=== PATIENT | female | born 1990 | race Caucasian/White ===

== ENCOUNTER 2025-02-03 15:08 | Emergency (ER) | payer BC, SELFPAY ==
--- NOTE | ~2025-02-03 | XR_ITS ---
EXAMINATION: XR chest 1V portable Exam Date/Time: 02/03/2025 15:40 CDT HISTORY: weakness Comparison: None. RESULT: Lines, tubes, and devices: None. Lungs and pleura: Clear. Cardiomediastinal silhouette: Unremarkable. Other: No acute osseous or upper abdominal finding. IMPRESSION: No acute cardiopulmonary process. Reviewed, dictated and finalized at location K.
--- NOTE | ~2025-02-03 | CT_ITS ---
EXAMINATION: CT brain wo con DATE: 02/03/2025 16:08 INDICATION: weakness . TECHNIQUE: Computed tomography (CT) of the head was performed without intravenous contrast. The mA wa s adjusted according to patient size. Iterative reconstruction technique was employed. The dose-lengt h product was 605.33 mGy-cm. COMPARISON: None. FINDINGS: No acute intracranial hemorrhage or extra-axial fluid collection. No hydrocephalus, mass, or herniation. No acute ischemic infarct. Unremarkable dural venous sinus attenuation. No acute osseous abnormality. The aerated spaces are clear. IMPRESSION: No acute intracranial process. Reviewed, dictated and finalized at location K.
[2025-02-03 15:10] VITALS: BP 158/99; PULSE 82; RESP 18; TEMP 36.7; O2SAT 96
--- NOTE | 2025-02-03 15:17 | ECG_ITS ---
Test Date: 2025-02-03 15:21:28 Measurements Intervals [place] Rate: 80 P: 59 [place]: 167 QRS: 106 QRSD: 111 T: 35 QT: 414 QTc: 480 Interpretive Statements SINUS RHYTHM RIGHT AXIS DEVIATION INCOMPLETE RIGHT BUNDLE BRANCH BLOCK BORDERLINE R WAVE PROGRESSION, ANTERIOR LEADS MINIMAL Q WAVES- INFEROR LEADS BORDERLINE ECG No previous ECG available for comparison Electronically Signed On 02-03-2025 15:30:49 CDT by John Velazquez D.O.
[2025-02-03 15:21] VITALS: PULSE 81
[2025-02-03 15:22] VITALS: BP 158/99; PULSE 81; RESP 20
[2025-02-03 15:33] LABS: Glucose Point of Care 121 mg/dl (65-105)
[2025-02-03 15:49] LABS: BEDSIDEPREGUCG Negative (Negative)
--- NOTE | 2025-02-03 15:51 | ED.NEUROSD ---
HPI - Neuro Symptoms/Deficit General Chief Complaint: Neuro Symptoms/Deficit Stated Complaint: neuro Time Seen by Provider: 02/03/25 15:15 History of Present Illness HPI Narrative: 34-year-old female with history of hypertension on labetalol. She presents to the emergency department with multiple complaints and unclear exactly what her chief complaint is. She states that she is here because all of her face and extremities, chest and abdomen are all swollen and have been swelling for last 3 days. She states she was at another hospital recently and left against medical advice after they were not treating her well. She states that she does meth and marijuana. Police reportedly called to the patient's house today and afterwards EMS transferred her to the hospital but unclear why the police were involved in the 1st place as this patient is a poor historian and they are not present for collateral formation at bedside. Report from EMS was that she had generalized weakness and swelling and were concerned for some neuro symptoms including slurring of her speech which was not present on my encounter with the patient. She states she has been feeling this way for 3 or more days and when asked about how long she meant by ?more days ? she said it possibly is up to 4 years that she has been feeling ill. States that she was having uncontrolled blood pressure issues for the duration of the last 4 years and her symptoms fluctuate with blood pressure. Patient does not endorse any symptoms such as headache, vision changes, chest pain, abdominal pain, back pain, weakness or paresthesias. Patient is more concerned about her whole body swelling which on clinical examination does not appear evident or significant. Related Data Allergies Allergy/AdvReac Type Severity Reaction Status Date / Time No Known Allergies Allergy Verified 02/03/25 15:23 Review of Systems Review of Systems: As reviewed above in HPI Exam Narrative: GENERAL: [Well-appearing, well-nourished, and in no acute distress.] HEAD: [Normocephalic, atraumatic.] EYES: [PERRLA and EOMI.] ENT: Nares clear, no rhinorrhea or epistaxis. Mucous membranes moist. NECK: Supple. CHEST: [Clear to auscultation. No respiratory distress.] HEART: [Regular rate and rhythm]. No murmur heard. [Normal peripheral pulses.] ABDOMEN: [Soft, nondistended], [nontender], [No rigidity or guarding] EXTREMITIES: Normal range of motion. No extremity edema in the arms legs, no periorbital ecchymosis or edema. SKIN: Warm, dry, no rash. NEURO: [No focal deficits]. Alert and oriented [x3.] Has no facial droop or any facial asymmetry, no slurring of her speech PSYCH: [Normal mood and affect.] Course Vital Signs Vital signs: Vital Signs Temperature 36.7 C 02/03/25 15:10 Pulse Rate 82 02/03/25 15:10 Respiratory Rate 18 02/03/25 15:10 Blood Pressure 158/99 H 02/03/25 15:10 Pulse Oximetry 96 02/03/25 15:10 Oxygen Delivery Room Air 02/03/25 15:10 Temperature 36.7 C 02/03/25 15:10 Pulse Rate 81 02/03/25 16:29 Respiratory Rate 18 02/03/25 16:29 Blood Pressure 156/86 H 02/03/25 16:29 Pulse Oximetry 98 02/03/25 16:29 Oxygen Delivery Room Air 02/03/25 15:10 MDM - Neuro Symptoms/Deficit MDM Narrative Medical decision making narrative: 34-year-old female with history of hypertension on labetalol. She presents to the emergency department with multiple complaints and unclear exactly what her chief complaint is. She states that she is here because all of her face and extremities, chest and abdomen are all swollen and have been swelling for last 3 days. She states she was at another hospital recently and left against medical advice after they were not treating her well. She states that she does meth and marijuana. Police reportedly called to the patient's house today and afterwards EMS transferred her to the hospital but unclear why the police were involved in the 1st place this patient is a poor historian and they are not present for collateral formation at bedside. Report from EMS was that she had generalized weakness and swelling and were concerned for some neuro symptoms including slurring of her speech which was not present on my encounter with the patient. She states she has been feeling this way for 3 or more days and when asked about how long she meant by ?more days ? she said it possibly is up to 4 years that she has been feeling ill. States that she was having uncontrolled blood pressure issues for the duration of the last 4 years and her symptoms fluctuate with blood pressure. Patient does not endorse any symptoms such as headache, vision changes, chest pain, abdominal pain, back pain, weakness or paresthesias. Patient is more concerned about her whole body swelling which on clinical examination does not appear evident or significant. Laboratory studies were ordered including TSH, electrolyte panel, CBC, EKG, chest x-ray and a CT of the head was ordered. Blood pressure was mildly elevated but not severe range and otherwise has normal vital signs with an unremarkable neurological assessment. Patient's workup was largely unremarkable without any signs of leukocytosis, anemia, platelet concerns. Normal coagulation panel. Chemistry panel was unremarkable with normal electrolytes. Creatinine 1.81 and patient states she has kidney disease from hypertension which we do not have a baseline to compare to but does track with her level today. Glucose is normal. LFTs are unremarkable. Normal TSH. test is negative, urinalysis negative. Urine drug screen is positive for cannabinoids otherwise negative. Negative alcohol level. Chest x-ray without any acute cardiopulmonary process. CT of the head without any acute intracranial process, no ischemic infarct, no hydrocephalus mass effect or herniation, normal dural venous sinus, normal air spaces. No hemorrhage or extra-axial fluid collections. EKG shows sinus rhythm, no ST segment elevations, depressions or acute inversions. Patient's symptomatology could very well be related to her chronic kidney disease which is likely secondary to her chronic hypertension. She remains hemodynamically stable here and asymptomatic with an acceptable blood pressure and an unremarkable workup. No urgent or emergent concerns are identified today and she can be safely discharged with close follow-up with her primary care provider. Medical Records Attestation: I reviewed the patient's medical records. Lab Data Attestation: I reviewed the patient's lab results. 02/03/25 16:38 02/03/25 16:38 Labs: Lab Results 02/03/25 02/03/25 02/03/25 Range/Units 15:30 15:42 15:43 WBC (4.5-10.0) K/mm3 RBC (4.2-5.4) M/mm3 Hgb (12.0-15.0) g/dL Hct (37.0-47.0) % MCV (80-100) fl MCH (26-34) pg MCHC (32-36) g/dl RDW (11.5-14.5) % Plt Count (150-375) k/mm3 MPV (7.4-10.4) fl Immature Gran % (Auto) (0-0.5) % Neut % (Auto) (45.5-73.1) % Lymph % (Auto) (18.3-44.2) % [place] % (Auto) (2.6-8.5) % Eos % (Auto) (0-4.4) % Baso % (Auto) (0.2-1.2) % Lymph # (Auto) (0.9-3.2) K/mm3 [place] # (Auto) (0.1-0.6) K/mm3 Eos # (Auto) (0-0.3) K/mm3 Baso # (Auto) (0.0-0.1) K/mm3 Abs Immat Gran (auto) (0.00-0.031) K/mm3 Absolute Neuts (auto) (1.3-6.7) K/mm3 Absolute Nucleated RBC (0.0-0.012) K/mm3 Nucleated RBC % (0.0-0.2) % PT (11.1-14.7) Seconds INR APTT (22.3-36.8) Seconds Sodium (137-145) mmol/L Potassium (3.4-5.0) mmol/L Chloride (98-107) mmol/L Carbon Dioxide (22-30) mmol/L Anion Gap (4-12) mmol/L BUN (7-17) mg/dL Creatinine (0.7-1.0) mg/dL Estim Creat Clear Calc ml/min Estimated GFR (59 - ) Glucose (65-110) mg/dL POC Capillary Glucose 121 H (65-105) mg/dl Calcium (8.4-10.2) mg/dL Total Bilirubin (0.2-1.3) mg/dL AST (14-36) U/L ALT (6-35) U/L Alkaline Phosphatase (38-126) U/L Total Protein (6.3-8.2) g/dL Albumin (3.5-5.1) g/dL TSH (Reflex) 2.650 (0.465-4.68) uIU/mL Urine Color Yellow (Yellow) Urine Appearance Clear (Clear) Urine pH 7.5 (5.0-9.0) Ur Specific [place] 1.018 (1.001-1.035) Urine Protein 4+ H (Negative) mg/dL Urine Glucose (UA) Negative (Negative) mg/dL Urine Ketones Negative (Negative) mg/dL Ur Blood (Man) Negative (Negative) Urine Nitrate Negative (Negative) Urine Bilirubin Negative (Negative) Urine Urobilinogen 1.0 (<2.0) mg/dL Leukocyte Esterase Rfl Negative (Negative) [place]/UL Urine RBC 0-2 (0-2) /hpf Urine WBC 0-5 (0-3) /hpf Ur Squamous Epith Cells Moderate (Few) /hpf Urine Bacteria Rare /hpf Urine Casts 0-2 POC Urine HCG, Qual (Negative) Urine Opiates Screen Negative (Negative) Urine Methadone Screen Negative (Negative) Ur Barbiturates Screen Negative (Negative) Ur Phencyclidine Scrn Negative (Negative) Ur Amphetamine Screen Negative (Negative) U Benzodiazepines Scrn Negative (Negative) Urine Cocaine Screen Negative (Negative) U Cannabinoids Screen Positive A (Negative) Ethyl Alcohol (<10) mg/dL 02/03/25 02/03/25 Range/Units 15:47 16:38 WBC 10.1 H (4.5-10.0) K/mm3 RBC 4.91 (4.2-5.4) M/mm3 Hgb 13.0 (12.0-15.0) g/dL Hct 42.0 (37.0-47.0) % MCV 85.5 (80-100) fl MCH 26.5 (26-34) pg MCHC 31.0 L (32-36) g/dl RDW 14.9 H (11.5-14.5) % Plt Count 180 (150-375) k/mm3 MPV 11.6 H (7.4-10.4) fl Immature Gran % (Auto) 0.3 (0-0.5) % Neut % (Auto) 76.8 H (45.5-73.1) % Lymph % (Auto) 15.4 L (18.3-44.2) % [place] % (Auto) 6.1 (2.6-8.5) % Eos % (Auto) 0.9 (0-4.4) % Baso % (Auto) 0.5 (0.2-1.2) % Lymph # (Auto) 1.56 (0.9-3.2) K/mm3 [place] # (Auto) 0.6 (0.1-0.6) K/mm3 Eos # (Auto) 0.1 (0-0.3) K/mm3 Baso # (Auto) 0.1 (0.0-0.1) K/mm3 Abs Immat Gran (auto) 0.03 (0.00-0.031) K/mm3 Absolute Neuts (auto) 7.8 H (1.3-6.7) K/mm3 Absolute Nucleated RBC 0.000 (0.0-0.012) K/mm3 Nucleated RBC % 0.0 (0.0-0.2) % PT 13.5 (11.1-14.7) Seconds INR 1.0 APTT 29.8 (22.3-36.8) Seconds Sodium 139 (137-145) mmol/L Potassium 4.1 (3.4-5.0) mmol/L Chloride 108 H (98-107) mmol/L Carbon Dioxide 24 (22-30) mmol/L Anion Gap 7 (4-12) mmol/L BUN 16 (7-17) mg/dL Creatinine 1.81 H (0.7-1.0) mg/dL Estim Creat Clear Calc 53 ml/min Estimated GFR 32 L (59 - ) Glucose 110 (65-110) mg/dL POC Capillary Glucose (65-105) mg/dl Calcium 9.3 (8.4-10.2) mg/dL Total Bilirubin 0.3 (0.2-1.3) mg/dL AST 43 H (14-36) U/L ALT 33 (6-35) U/L Alkaline Phosphatase 136 H (38-126) U/L Total Protein 6.9 (6.3-8.2) g/dL Albumin 3.5 (3.5-5.1) g/dL TSH (Reflex) (0.465-4.68) uIU/mL Urine Color (Yellow) Urine Appearance (Clear) Urine pH (5.0-9.0) Ur Specific [place] (1.001-1.035) Urine Protein (Negative) mg/dL Urine Glucose (UA) (Negative) mg/dL Urine Ketones (Negative) mg/dL Ur Blood (Man) (Negative) Urine Nitrate (Negative) Urine Bilirubin (Negative) Urine Urobilinogen (<2.0) mg/dL Leukocyte Esterase Rfl (Negative) [place]/UL Urine RBC (0-2) /hpf Urine WBC (0-3) /hpf Ur Squamous Epith Cells (Few) /hpf Urine Bacteria /hpf Urine Casts POC Urine HCG, Qual Negative (Negative) Urine Opiates Screen (Negative) Urine Methadone Screen (Negative) Ur Barbiturates Screen (Negative) Ur Phencyclidine Scrn (Negative) Ur Amphetamine Screen (Negative) U Benzodiazepines Scrn (Negative) Urine Cocaine Screen (Negative) U Cannabinoids Screen (Negative) Ethyl Alcohol < 10 (<10) mg/dL Imaging Data Attestation: I personally reviewed and interpreted this imaging study as follows: My impression: Impressions Head CT 02/03/25 16:12 IMPRESSION: No acute intracranial process. Chest X-Ray 02/03/25 16:15 IMPRESSION: No acute cardiopulmonary process. Discharge Plan Discharge Clinical Impression: Chronic hypertension, Chronic kidney disease Patient Disposition: Home Condition: Stable Instructions: Antibiotic Form, Chronic Kidney Disease (ED), Chronic Hypertension (DC) Additional Instructions: Your workup today is largely unremarkable for any acute abnormalities. You have chronic kidney disease from your chronic hypertension but no signs of any electrolyte derangements, normal liver function, normal chest x-ray and head CT without any acute or chronic findings. No signs of infection. Overall your symptoms could very well be secondary to your chronic kidney disease but there is nothing that needs to be addressed on an urgent or emergent/inpatient basis and you need to follow-up closely with your primary care provider for further outpatient recommendations and evaluation longitudinally. Return with any emergent concerns. Patient Language: Sami Follow-up/Referrals: PHYSICIAN,EKG MANAGER [Primary Care Provider] - Time of Disposition: 18:46
[2025-02-03 15:58] LABS: Add Urine Microscopic? YES; Appearance Urine Clear (Clear); Bacteria Urine Rare /hpf; Bilirubin Urine Negative (Negative); Blood Urine Negative (Negative); Color Urine Yellow (Yellow); Glucose Urine UA Negative (Negative); Ketones Urine Negative (Negative); Leukocyte Esterase Ur Negative LEU/UL (Negative); Nitrate Urine Negative (Negative); Non Pathogenic Casts 0-2; Protein Urine 4+ mg/dL (Negative); RBC Urine 0-2 /hpf (0-2); Specific Grav Ur 1.018 (1.001-1.035); Squamous Epithelial Cell Urine Moderate /hpf (Few); WBC Urine 0-5 /hpf (0-3); pH Urine 7.5 (5.0-9.0)
[2025-02-03 16:29] VITALS: BP 156/86; PULSE 81; RESP 18; O2SAT 98
[2025-02-03 17:00] LABS: Basophils Absolute Auto 0.1 K/mm3 (0.0-0.1); Basophils Percent Auto 0.5 % (0.2-1.2); Eosinophils Absolute Auto 0.1 K/mm3 (0-0.3); Eosinophils Percent Auto 0.9 % (0-4.4); Immature Granulocyte Absolute 0.03 K/mm3 (0.00-0.031); Immature Granulocyte Percent A 0.3 % (0-0.5); Lymphocytes Absolute Auto 1.56 K/mm3 (0.9-3.2); Lymphocytes Percent Auto 15.4 % (18.3-44.2); Mean Corpuscular Hemoglobin 26.5 pg (26-34); Mean Corpuscular Volume 85.5 fl (80-100); Mean Platelet Volume 11.6 fl (7.4-10.4); Monocytes Absolute Auto 0.6 K/mm3 (0.1-0.6); Monocytes Percent Auto 6.1 % (2.6-8.5); Neutrophils Absolute Auto 7.8 K/mm3 (1.3-6.7); Neutrophils Percent Auto 76.8 % (45.5-73.1); Platelet Count Result 180 k/mm3 (150-375); Red Blood Count 4.91 M/mm3 (4.2-5.4); Red Cell Distribution Width 14.9 % (11.5-14.5); White Blood Count 10.1 K/mm3 (4.5-10.0)
[2025-02-03 17:12] LABS: Ethanol < 10 mg/dL (<10)
[2025-02-03 17:13] LABS: Alanine Aminotransferase 33 U/L (6-35); Albumin Level 3.5 g/dL (3.5-5.1); Alkaline Phosphatase 136 U/L (38-126); Anion Gap 7 mmol/L (4-12); Aspartate Amino Transferase 43 U/L (14-36); Bilirubin,Total 0.3 mg/dL (0.2-1.3); Blood Urea Nitrogen 16 mg/dL (7-17); Calcium 9.3 mg/dL (8.4-10.2); Carbon Dioxide 24 mmol/L (22-30); Chloride 108 mmol/L (98-107); Estimated CRCL calculation 53 ml/min; Estimated Glomerular Filt Rate 32; Glucose 110 mg/dL (65-110); Potassium 4.1 mmol/L (3.4-5.0); Sodium 139 mmol/L (137-145); Total Protein 6.9 g/dL (6.3-8.2)
[2025-02-03 17:15] LABS: Prothrombin Time 13.5 Seconds (11.1-14.7)
[2025-02-03 17:16] LABS: Partial Thromboplastin Time 29.8 Seconds (22.3-36.8)
[2025-02-03 17:23] LABS: Amphetamine Screen Urine Negative (Negative); Barbiturate Screen Urine Negative (Negative); Benzodiazepines Screen Urine Negative (Negative); Cannabinoid Screen Urine Positive (Negative); Cocaine Screen Urine Negative (Negative); Methadone Screen Urine Negative (Negative); Opiate Screen Urine Negative (Negative); Phencyclidine Screen Urine Negative (Negative)
== END 2025-02-03 20:00 | disposition home or self-care (01) ==
PROVIDERS: Emergency Provider Student in an Organized Health Care Education/Training Program
DX: R53.1 Weakness (principal); I12.9 Hypertensive chronic kidney disease with stage 1 through stage 4 chronic kidney disease, or unspecified chronic kidney disease; N18.9 Chronic kidney disease, unspecified
CPT/HCPCS: 36415; 70450; 71045; 80053; 80307; 81001; 81025; 82077; 82948; 84443; 85025; 85610; 85730; 93005; 99284